=== PATIENT | male | born 1995 | race Hispanic/Latino ===

== ENCOUNTER 2019-06-24 22:34 | Emergency (ER) | payer OTHER, BC ==
[2019-06-24] MEDS ORDERED: ACETAMINOPHEN EXTRA STRENGTH 500 MG TABLET ONE (23:14)
== END 2019-06-25 00:03 | disposition home or self-care (01) ==
LOC: EDH 22:34
DX: S42.022A Displaced fracture of shaft of left clavicle, initial encounter for closed fracture (principal); W17.89XA Other fall from one level to another, initial encounter; Y93.89 Activity, other specified; Y92.89 Other specified places as the place of occurrence of the external cause; Y99.8 Other external cause status
CPT/HCPCS: 71045; 73000

== ENCOUNTER 2023-06-13 14:04 | Emergency (ER) | payer BC, OTHER ==
[~2023-06-13] VITALS: Ht 190.5 cm; Wt 145.1 kg
[2023-06-13 15:09] VITALS: BP 177/94; PULSE 112; RESP 20
[2023-06-13] MEDS ORDERED: IBUP-2077 PO (16:06)
[2023-06-13] MEDS ORDERED: CEPH500B PO (16:06)
[2023-06-13] MEDS ORDERED: CEFTRIAXONE 1G VIAL IM ONE (16:30)
[2023-06-13] MEDS ORDERED: IBUPROFEN 800 MG TAB PO ONE (16:30)
== END 2023-06-13 17:50 | disposition home or self-care (01) ==
LOC: EDH 14:04
DX: L05.91 Pilonidal cyst without abscess (principal)
CPT/HCPCS: 99284; 96372; J0696